=== PATIENT | female | born 1985 | race Caucasian/White ===

== ENCOUNTER 2017-04-27 06:08 | Outpatient (CLI) | payer MEDICAID ==
[~2017-04-27] VITALS: Ht 154.9 cm; Wt 69.5 kg
[~2017-04-27 06:08] MED LIST: MOTRIN 600600 MG/TAB PO; PERCOCET 325 MG1 TA2 PO; PRENATAL1 TA1 PO; Senokot-S PO
[2017-04-27 06:29] VITALS: BP 97/69; PULSE 94; TEMP 98.7
[2017-04-27 07:00] VITALS: BP 97/69; PULSE 94; TEMP 98.7
== END 2017-04-27 07:55 | disposition home or self-care (01) ==
LOC: LDRO 06:08
DX: Z34.83 Encounter for supervision of other normal pregnancy, third trimester (principal); Z3A.36 36 weeks gestation of pregnancy
CPT/HCPCS: J3105

== ENCOUNTER 2017-05-28 06:29 | Inpatient (IN) | payer MEDICAID ==
[2017-05-28] VITALS (35 sets, daily range): BP systolic 83–159; BP diastolic 38–88; PULSE 69–111; TEMP 97.4–98.3
[~2017-05-28] VITALS: Ht 157.5 cm; Wt 71.4 kg
[2017-05-28 08:45] LABS: BASO % 0.4 % (0.0-2.0); EOS # 0.1 (0.0-0.7); EOS % 1.1 % (0-4.0); GRAN # 8.3 (1.4-6.5); GRAN % 79.5 % (42.2-75.2); HEMATOCRIT 38.3 % (37.0-47.0); LYMPH # 1.5 (1.2-3.4); LYMPH % 14.1 % (20.0-51.0); MEAN CELL VOLUME 82 fl (80.0-100.0); MEAN CORPUSCULAR HEMOGLOBIN 28 pg (27.0-31.0); MEAN CORPUSCULAR HGB CONC 34 g/dl (33.0-37.0); MEAN PLATELET VOLUME 11.1 fl (7.4-10.4); MONO # 0.4 (0.1-0.6); MONO % 3.8 % (1.7-9.3); PLATELET COUNT 137 K/mm3 (130-400); RED BLOOD COUNT 4.68 M/mm3 (4.10-5.30); REDCELL DISTRIBUTION WIDTH-CV 13.5 % (11.5-14.5)
[2017-05-29 07:30] VITALS: BP 99/59; PULSE 77; TEMP 98.4
[2017-05-29] MEDS ORDERED: IBU800 M1 PO (11:14)
== END 2017-05-29 12:45 | disposition home or self-care (01) | DRG 775 ==
LOC: LDR 06:29 → OB 21:00
PROVIDERS: Obstetrics & Gynecology
PROC: 10E0XZZ Delivery of Products of Conception, External Approach (ICD-10-PCS; principal; 2017-05-28)
PROC: 0KQM0ZZ Repair Perineum Muscle, Open Approach (ICD-10-PCS; 2017-05-28)
DX: O48.0 Post-term pregnancy (principal); O70.1 Second degree perineal laceration during delivery; Z3A.40 40 weeks gestation of pregnancy; Z37.0 Single live birth
CPT/HCPCS: J2405; J2590; J2795; J7120